=== PATIENT | male | born 1975 | race Caucasian/White ===

== ENCOUNTER 2017-07-06 15:18 | Day surgery (SDC) | payer OTHER ==
[~2017-07-06 15:18] MED LIST: Buffered Lidocaine 0.9% SYRIN* 5 ML/SYR SYRINGE INTRADERM ONE; DiMENhydriNATE IV* 50 MG/ML VIAL IV PUSH PRN; Famotidine IV* 10 MG/ML 2 ML (20 mg) IV ONE; Morphine INJ* 2 MG/ML 1 ML CARPUJECT IV PRN; Naloxone* 0.4 MG/ML 1 ML VIAL IV PRN; PROCHLORPERAZINE INJ 5 MG/ML 2 ML VIAL IV PRN; Scopolamine 1.5 mg* PATCH TRANSDERM PRN; fentaNYL* 50 MCG/ML 2 ML VIAL (100 MCG VIAL) IV PRN; oxyCODONE/Acetamin 5/325 MG* TAB PO PRN
[2017-07-06] MEDS ORDERED: Famotidine IV* 10 MG/ML 2 ML (20 mg) ONE (15:25)
[2017-07-06] MEDS ORDERED: ceFAZolin 1 GM in Dextrose (*) 2 GM/100 ML BAG IVPB ONE (15:25)
[2017-07-06] MEDS ORDERED: fentaNYL* 50 MCG/ML 2 ML VIAL (100 MCG VIAL) ONE (17:59)
[2017-07-06] MEDS ORDERED: Midazolam* 1 MG/ML 5 ML VIAL (5 MG) ONE (18:00)
[2017-07-06] MEDS ORDERED: Bupivacaine 0.25% SDV* 30 ML ONE (18:45)
[2017-07-06] MEDS ORDERED: Ondansetron INJ* 2 MG/ML VIAL ONE (19:15)
[2017-07-06] MEDS ORDERED: Propofol* 10 MG/ML 20 ML BTL IV PUSH ONE (19:15)
[2017-07-06] MEDS ORDERED: Ketorolac INJ* 30 MG/ML 1 ML VIAL ONE (19:41)
[2017-07-06 20:03] VITALS: BP 136/80
--- NOTE | 2017-07-06 21:24 | RAD ---
INDICATION: Traumatic fracture left fifth finger COMPARISON: July 03, 2017 FINDINGS: 43 seconds of fluoroscopy were provided for the orthopedics department. Fluoroscopic spot imaging of the left fifth digit were obtained for operative control and show interval percutaneous pinning of the fracture the proximal phalanx of the fifth digit. CPT II Codes: 6045F (fluoro time doc)
--- NOTE | 2017-07-07 18:13 | OP ---
DATE OF OPERATION: 07/06/17 - [facility] DATE OF : 79 SURGEON: Luis Bowen MD FLOOR COVERING PRINTER ASSISTANT: SAFIA Cano. An program assistant was needed for the procedure to aid in positioning of the arm while the pins were being placed. ANESTHESIOLOGIST: Adams Lincoln MD ANESTHESIA: Local MAC. PRE-OP DIAGNOSIS: Left small finger proximal phalanx displaced proximal shaft fracture. POST-OP DIAGNOSIS: Left small finger proximal phalanx displaced proximal shaft fracture. OPERATIVE PROCEDURE: Close reduction and percutaneous fixation of left small finger proximal phalanx shaft fracture. ESTIMATED BLOOD LOSS: 1 mL. COMPLICATIONS: None. FINDINGS: As expected. DESCRIPTION OF PROCEDURE: Steve was seen in the preoperative holding area. The correct side, site, and procedure were identified. We came back to the operating room and the arm was prepped and draped in the usual fashion. A time- out was performed. I closed reduced the fracture, it , but it did come back out of hyperextension. Once, I had the alignment corrected in the sagittal plane which was the major malalignment and I confirmed that things were looking good on mini C- arm fluoroscopy, I brought in a 0.045 K-wire and I advanced it into the proximal fragment from proximal to distal. I then held the closed reduction and passed the wire across the fracture site. I placed a second K-wire at this time on the radial side of the MCP joint in antegrade fashion. This pin was advanced through the proximal fragment down to subchondral bone distally. The first wire went from ulnar to radial and exited out the radial cortex of the shaft. The alignment was checked. Everything was looking good, so we bent and clipped the wires. They were dressed with Xeroform , 4x4's, sterile Webril, and then an ulnar gutter splint was applied grabbing the ring and small fingers in the intrinsic plus position. He was then taken to the recovery room in stable condition. [id number]/[facility] #: [id number] CARMEL
[2017-07-09] MEDS ORDERED: Scopolamine PATCH Remove* 1 NOTE MISC PATCH OFF ONE (07:32)
== END 2017-07-06 20:25 | disposition home or self-care (01) ==
LOC: OR 15:18
PROVIDERS: ATTEND Orthopaedic Surgery Hand Surgery
DX: S62.617A Displaced fracture of proximal phalanx of left little finger, initial encounter for closed fracture (principal); W10.9XXA Fall (on) (from) unspecified stairs and steps, initial encounter; Y92.009 Unspecified place in unspecified non-institutional (private) residence as the place of occurrence of the external cause
CPT/HCPCS: 76000; C1776; J0690; J1885; J2250; J2405; J2704; J3010